=== PATIENT | female | born 1940 | race Two or more races ===

== ENCOUNTER 2021-10-29 11:30 | Inpatient (IN) | payer OTHER ==
[~2021-10-29] VITALS: Ht 165.1 cm; Wt 72.6 kg
[2021-10-29 12:09] LABS: Basophils # (auto) 0 10 ^3/uL (0-0.2); Eosinophils # (auto) 0.2 10 ^3/uL (0-0.8); Eosinophils % (auto) 5.8 % (0.0-7.0); Hematocrit 36.1 % (36.0-46.0); Lymphocytes # (auto) 0.9 10 ^3/uL (0.4-5.4); Lymphocytes % (auto) 21.3 % (10.0-50.0); Mean Corpuscular Hemoglobin 31.3 pg (28.0-32.0); Mean Corpuscular Hgb Conc. 33.2 g/dL (32.0-36.0); Mean Corpuscular Volume 94.1 fL (80.0-100.0); Monocytes # (auto) 0.5 10 ^3/uL (0-1.3); Monocytes % (auto) 12.2 % (0.0-12.0); Neutrophils # (auto) 2.4 10 ^3/uL (1.6-8.6); Neutrophils % (auto) 59.7 % (37.0-80.0); Nucleated Red Blood Cells % 0.2 %; Red Blood Cells 3.84 10^6/uL (4.0-5.20); Red Cell Distribution Width 14.4 % (11.8-14.3)
[2021-10-29 12:40] LABS: Albumin 3.5 g/dL (3.4-5.0); Magnesium 1.8 mg/dL (1.6-2.6)
[2021-10-29] MEDS ORDERED: ASPirin 81 mg TAB PO ONE (12:45)
[2021-10-29 12:46] LABS: BUN/Creatinine Ratio 18.9; Bilirubin, Total 0.3 mg/dL (0.2-1.0); Total Protein 7.6 g/dL (6.4-8.2)
[2021-10-29] MEDS ORDERED: HYDROcodone-ACET 5/325MG TAB PO PRN (20:15)
[2021-10-29] MEDS ORDERED: ACETAMINOPHEN 325 MG TAB PO PRN (20:15)
[2021-10-29] MEDS ORDERED: NITROGLYCERIN 0.4 MG SL TAB SL PRN (20:15)
[2021-10-29] MEDS ORDERED: MORPHINE SULFATE 4 MG/ML SYR/VIAL IV PRN (20:15)
[2021-10-29] MEDS ORDERED: MORPHINE SULFATE INJECTION 2 MG/ML SYRG IV PRN (20:15)
[2021-10-29] MEDS ORDERED: ONDANSETRON HCL 4 MG/2 ML VIAL IV PRN (20:15)
[2021-10-30 04:49] LABS: Urine Bacteria MOD /hpf (None Seen); Urine Blood Negative /uL (Negative); Urine Specific Gravity 1.005 (1.001-1.035); Urine WBC 1 /hpf (0 - 5)
[2021-10-30 05:29] LABS: Albumin 3.5 g/dL (3.4-5.0); Potassium 4.5 mmol/L (3.5-5.1)
[2021-10-30 05:32] LABS: BUN/Creatinine Ratio 19.5; Bilirubin, Total 0.2 mg/dL (0.2-1.0); Total Protein 7.4 g/dL (6.4-8.2)
[2021-10-30 09:22] LABS: Basophils # (auto) 0 10 ^3/uL (0-0.2); Basophils % (auto) 0.6 % (0.0-2.0); Eosinophils # (auto) 0.3 10 ^3/uL (0-0.8); Eosinophils % (auto) 5.4 % (0.0-7.0); Hematocrit 36.6 % (36.0-46.0); Lymphocytes # (auto) 1.2 10 ^3/uL (0.4-5.4); Lymphocytes % (auto) 24.9 % (10.0-50.0); Mean Corpuscular Hemoglobin 30.7 pg (28.0-32.0); Mean Corpuscular Hgb Conc. 32.7 g/dL (32.0-36.0); Monocytes # (auto) 0.5 10 ^3/uL (0-1.3); Monocytes % (auto) 11.2 % (0.0-12.0); Neutrophils # (auto) 2.8 10 ^3/uL (1.6-8.6); Neutrophils % (auto) 57.9 % (37.0-80.0); Nucleated Red Blood Cells % 0.1 %; Red Blood Cells 3.89 10^6/uL (4.0-5.20); Red Cell Distribution Width 14.3 % (11.8-14.3); White Blood Cell 4.8 10^3/uL (4.4-10.8)
[2021-10-30] MEDS ORDERED: ENOXAPARIN SOD 40 MG/0.4 ML SYRINGE SC SCH (10:00)
[2021-10-30 11:01] VITALS: BP 157/83
== END 2021-10-30 12:07 | disposition home or self-care (01) | DRG 205 ==
LOC: ER 11:30 → TELE 20:06
PROVIDERS: ADMIT Internal Medicine; ATTEND Internal Medicine
DX: M94.0 Chondrocostal junction syndrome [Tietze] (principal); I50.33 Acute on chronic diastolic (congestive) heart failure; I11.0 Hypertensive heart disease with heart failure; Z20.822 Contact with and (suspected) exposure to COVID-19
CPT/HCPCS: 36415; 71046; 80053; 81001; 83735; 83880; 84484; 85025; 87426; 93005; G0378

== ENCOUNTER 2023-12-10 08:39 | Inpatient (IN) | payer OTHER ==
[~2023-12-10] VITALS: Ht 167.6 cm; Wt 68.2 kg
[2023-12-10 09:29] LABS: Basophils # (auto) 0 10 ^3/uL (0-0.2); Basophils % (auto) 0.9 % (0.0-2.0); Eosinophils # (auto) 0.1 10 ^3/uL (0-0.8); Eosinophils % (auto) 3.2 % (0.0-7.0); Hematocrit 38.9 % (36.0-46.0); Hemoglobin 12.6 g/dL (12.2-16.2); Lymphocytes # (auto) 0.9 10 ^3/uL (0.4-5.4); Mean Corpuscular Hemoglobin 30.4 pg (28.0-32.0); Mean Corpuscular Hgb Conc. 32.6 g/dL (32.0-36.0); Mean Corpuscular Volume 93.3 fL (80.0-100.0); Monocytes # (auto) 0.4 10 ^3/uL (0-1.3); Monocytes % (auto) 10.7 % (0.0-12.0); Neutrophils # (auto) 2.4 10 ^3/uL (1.6-8.6); Neutrophils % (auto) 62.2 % (37.0-80.0); Nucleated Red Blood Cells % 0.2 %; Red Blood Cells 4.16 10^6/uL (4.0-5.20); Red Cell Distribution Width 14.9 % (11.8-14.3); White Blood Cell 3.9 10^3/uL (4.4-10.8)
[2023-12-10 09:33] VITALS: O2SAT 99
[2023-12-10 09:34] LABS: Chloride 109 mmol/L (98-107); Potassium 3.8 mmol/L (3.5-5.1); Sodium 145 mmol/L (136-145)
[2023-12-10 09:35] LABS: Anion Gap 8 (5-15); Calcium 9.6 mg/dL (8.5-10.1); Carbon Dioxide 28 mmol/L (20-30)
[2023-12-10 09:40] LABS: BUN/Creatinine Ratio 12.3 (10.0-20.0); Blood Urea Nitrogen 10 mg/dL (9-23); Glucose 127 mg/dL (74-106)
[2023-12-10] MEDS: ACETAMINOPHEN 500 MG TAB PO ONE (11:48)
[2023-12-10] MEDS: IPRATROPIUM BROM 0.5 MG/2.5ML INH SOL NEB ONE (12:28)
[2023-12-10] MEDS: ALBUTEROL SULF 2.5 MG/0.5ML(0.5%) NEB SOLN NEB ONE (12:28)
[2023-12-10 12:48] LABS: Urine Bacteria NONE SEEN /hpf (None Seen); Urine Blood Negative /uL (Negative); Urine Clarity Clear (Clear); Urine Protein, UAD TRACE (Negative); Urine Specific Gravity 1.015 (1.001-1.035); Urine Urobilinogen Normal (Negative); Urine WBC 2 /hpf (0 - 5); Urine pH 6.5 (5.0-8.0)
[2023-12-10 12:49] LABS: Urine Color Straw (Yellow)
[2023-12-10] MEDS: NITROGLYCERIN 0.4 MG SL TAB SL ONE (15:20)
[2023-12-10] MEDS: FUROSEMIDE 20 MG/2 ML VIAL IV ONE (15:21)
[2023-12-10] MEDS ORDERED: MORPHINE SULFATE INJ 2 MG/ml SYRG IV PRN ×2 (17:45)
[2023-12-10] MEDS ORDERED: HYDROcodone-ACET 5/325MG TAB PO PRN (17:45)
[2023-12-10] MEDS ORDERED: NITROGLYCERIN 0.4 MG SL TAB SL PRN (17:45)
[2023-12-10] MEDS ORDERED: ONDANSETRON HCL 4 MG/2 ML VIAL IV PRN (17:45)
[2023-12-10 19:41] VITALS: PULSE 93; RESP 18; O2SAT 96
[2023-12-10] MEDS ORDERED: hydrALAZINE HCL 20 MG/ML VL IV PRN (21:45)
[2023-12-10] MEDS: LOSARTAN POTASSIUM 25 MG TAB PO SCH (21:56)
[2023-12-10] MEDS: CARVEDILOL 3.125 MG TAB PO SCH (21:57)
[2023-12-10 21:59] VITALS: BP 154/88; PULSE 94; TEMP 97.9; O2SAT 96
[2023-12-11] VITALS (11 sets, daily range): BP systolic 128–176; BP diastolic 57–95; PULSE 78–111; RESP 15–22; TEMP 97.4–98.4; O2SAT 91–100
[2023-12-11] MEDS ORDERED: LOS25T PO (01:31)
[2023-12-11] MEDS ORDERED: ASPI81CH59 PO (01:31)
[2023-12-11] MEDS ORDERED: CARV3.1240 PO (01:31)
[2023-12-11] MEDS ORDERED: ATOR10TA52 PO (01:31)
[2023-12-11] MEDS: ASPirin-EC 81 mg tab PO SCH (09:15)
[2023-12-11] MEDS ORDERED: cloNIDine HCL 0.1 MG TAB PO PRN (10:45)
[2023-12-11] MEDS ORDERED: LEVALBUTEROL HCL 1.25 MG/3 ML NEB NEB SCH (12:00)
[2023-12-11] MEDS: FUROSEMIDE 20 MG/2 ML VIAL IV ONE (14:13)
[2023-12-11] MEDS: LEVALBUTEROL HCL 1.25 MG/3 ML NEB NEB SCH (14:46)
[2023-12-11] MEDS: LOSARTAN POTASSIUM 25 MG TAB PO SCH (15:49)
[2023-12-11] MEDS: CARVEDILOL 3.125 MG TAB PO SCH (22:01)
[2023-12-12] VITALS (7 sets, daily range): BP systolic 110–143; BP diastolic 51–75; PULSE 76–91; RESP 16–20; TEMP 97.1–98.1; O2SAT 91–97
[2023-12-12] MEDS ORDERED: LEVALBUTEROL HCL 1.25 MG/3 ML NEB NEB PRN (09:45)
[2023-12-12] MEDS: hydroCHLOROthiazide 25 MG TAB PO SCH (10:21)
[2023-12-12] MEDS ORDERED: CARV6.2551 PO (14:57)
[2023-12-12] MEDS ORDERED: LOSA50TA46 PO (14:57)
[2023-12-12] MEDS ORDERED: HYDR12.59 PO (14:57)
== END 2023-12-12 17:05 | disposition home or self-care (01) | DRG 280 ==
LOC: ER 08:39 → EDBD 08:39 → TELE 17:47 → TELE-EAST 17:47
PROVIDERS: ADMIT Hospitalist; ATTEND Hospitalist
DX: I13.0 Hypertensive heart and chronic kidney disease with heart failure and stage 1 through stage 4 chronic kidney disease, or unspecified chronic kidney disease (principal); I21.A1 Myocardial infarction type 2; I50.43 Acute on chronic combined systolic (congestive) and diastolic (congestive) heart failure; E78.5 Hyperlipidemia, unspecified; I16.0 Hypertensive urgency; J44.9 Chronic obstructive pulmonary disease, unspecified; N18.9 Chronic kidney disease, unspecified; I42.9 Cardiomyopathy, unspecified; Z82.49 Family history of ischemic heart disease and other diseases of the circulatory system
CPT/HCPCS: 36415; 71046; 71275; 80048; 81001; 83880; 84484; 85025; 93306; 94640; 97110; 97116; 97163; 97530; G0378